=== PATIENT | female | born 1965 | race Caucasian/White ===

== ENCOUNTER 2018-08-02 22:15 | Inpatient (IN) | payer BC ==
[~2018-08-02] VITALS: Ht 162.6 cm; Wt 84.4 kg
[2018-08-02] MEDS ORDERED: ALBUTEROL SULF 2.5 MG/0.5ML(0.5%) NEB SOLN NEB ONE (23:00)
[2018-08-02] MEDS ORDERED: IPRATROPIUM BROM 0.5 MG/2.5ML INH SOL NEB ONE (23:00)
[2018-08-02] MEDS ORDERED: SODIUM CHLORIDE 0.9% 1,000 ML IV ONE (23:45)
[2018-08-02] MEDS ORDERED: methylPREDNISolone SOD SUCC 125 MG/2 ML VL IV ONE (23:45)
[2018-08-03] VITALS (7 sets, daily range): BP systolic 99–136; BP diastolic 56–86
[2018-08-03 00:38] LABS: Basophils # (auto) 0 uL; Basophils % (auto) 0.7 % (0.0-2.0); Eosinophils # (auto) 0.2 uL; Eosinophils % (auto) 2.4 % (0.0-7.0); Hematocrit 43.4 % (36.0-46.0); Hemoglobin 14.7 g/dL (12.2-16.2); Lymphocytes # (auto) 2.5 uL; Lymphocytes % (auto) 36.8 % (10.0-50.0); Mean Corpuscular Hemoglobin 31.2 pg (28.0-32.0); Mean Corpuscular Hgb Conc. 33.9 g/dL (32.0-36.0); Mean Corpuscular Volume 92.2 fL (80.0-100.0); Monocytes # (auto) 0.7 uL; Monocytes % (auto) 10.6 % (0.0-12.0); Neutrophils # (auto) 3.3 uL; Neutrophils % (auto) 49.5 % (37.0-80.0); Platelet Count (auto) 182 10^3/uL (140-450); Red Cell Distribution Width 14.1 % (11.8-14.3); White Blood Cell 6.8 10^3/uL (4.4-10.8)
[2018-08-03 00:54] LABS: Albumin 3.3 g/dL (3.4-5.0); Calcium 8.3 mg/dL (8.5-10.1); Potassium 4.3 mmol/L (3.5-5.1)
[2018-08-03 00:56] LABS: Bilirubin, Total 0.3 mg/dL (0.2-1.0)
[2018-08-03] MEDS ORDERED: ALBUTEROL SULF 2.5 MG/0.5ML(0.5%) NEB SOLN NEB ONE (04:30)
[2018-08-03] MEDS ORDERED: IPRATROPIUM BROM 0.5 MG/2.5ML INH SOL NEB ONE (04:30)
[2018-08-03] MEDS ORDERED: IOHEXOL 300 MG/ML 100ML BOTTLE IJ ONE (04:32)
[2018-08-03] MEDS ORDERED: LACTULOSE 20Gm/30ML SOLN PO PRN (08:45)
[2018-08-03] MEDS ORDERED: PROMETHAZINE HCL 25 MG/ML 1ML IV PRN (08:45)
[2018-08-03] MEDS ORDERED: ACETAMINOPHEN 500 MG TAB PO PRN (08:45)
[2018-08-03] MEDS ORDERED: MORPHINE SULF INJ 2 MG/ML SYRINGE 1ML IV PRN (08:45)
[2018-08-03] MEDS ORDERED: ALBUTEROL SULF 2.5 MG/0.5ML(0.5%) NEB SOLN NEB PRN (08:45)
[2018-08-03] MEDS ORDERED: TEMAZEPAM 15 MG CAP PO PRN (08:45)
[2018-08-03] MEDS ORDERED: traMADol HCL 50 MG TAB PO PRN (08:45)
[2018-08-03] MEDS ORDERED: NITROGLYCERIN 0.4 MG SL TAB SL PRN (08:45)
[2018-08-03 08:47] LABS: Urine Bacteria NONE SEEN /hpf (None Seen); Urine Blood 1+ /uL (Negative); Urine Budding Yeast OCCASIONAL /hpf (None Seen); Urine Mucus FEW (None Seen); Urine Specific Gravity 1.048 (1.001-1.035); Urine WBC <1 /hpf (0 - 5)
[2018-08-03] MEDS: DOXYCYCLINE 100MG/250ML 250 ML IV SCH ×2 (09:45→22:04)
[2018-08-03] MEDS: SODIUM CHLORIDE 0.9% 1,000 ML IV SCH ×2 (09:45→22:04)
--- NOTE | 2018-08-03 10:10 | NUR ---
Telemetry admit from [facility] admitted to Telemetry unit after SBAR received. Patient oriented to ELIAN HALE RN primary RN, unit, room, bed, and unit policies regarding patient care and visiting hours. Patient now on continuous telemetry monitoring, tele box #23 and telemetry reading on arrival to unit is SR 82. Patient weighed by bedscale and encouraged to call if they need something. All questions and concerns addressed, patient verbalized understanding.
[2018-08-03] MEDS: PANTOPRAZOLE 40 MG TAB PO SCH (10:34)
[2018-08-03] MEDS: ENOXAPARIN SOD 40 MG/0.4 ML SYRINGE SC SCH (10:35)
[2018-08-03] MEDS: ALBUTEROL SULF 2.5 MG/0.5ML(0.5%) NEB SOLN NEB SCH ×2 (11:00→18:58)
[2018-08-03] MEDS: IPRATROPIUM BROM 0.5 MG/2.5ML INH SOL NEB SCH ×2 (11:00→18:58)
[2018-08-03] MEDS ORDERED: methylPREDNISolone SOD SUCC 40 MG/ML VL IV SCH (12:00)
--- NOTE | 2018-08-03 19:30 | NUR ---
End of Shift Endorsed care to [facility] nurse Jocelyn. Patient shows no signs of distress at this time. Respiratory present at bedside performing breathing treatment.
--- NOTE | 2018-08-03 19:35 | NUR ---
Opening Shift Note Assumed care of patient, awake and alert, speaking on cell phone to son. No S/S of distress/SOB or pain. Bed in lowest locked position, side rails up x2, call light within reach. Instructed on POC and to call for assist PRN, will continue to monitor for changes Q1hr and PRN.
[2018-08-03] MEDS: methylPREDNISolone SOD SUCC 40 MG/ML VL IV SCH (22:03)
--- NOTE | 2018-08-04 00:15 | NUR ---
Respiratory note: PT REFUSING SCHEDULED MED NEB TX, STATES SHE IS NOT FEELING WELL, SHE FEEL NAUSEOUS AND TIRED. DENIES ANY CURRENT SOB, NO DISTRESS NOTED. HR 78 RR 18 SPO2 93% ON RA. PT AND RN AWARE TO HAVE RT PAGED IF NEEDED.
--- NOTE | 2018-08-04 00:30 | NUR ---
Nausea Patient reporting that she "does not feel well," and that her "stomach is upset". Patient offered nausea medication, refusing at this time. Patient aware to call RN if she changes her mind. No s/s of distress, will continue to monitor.
[2018-08-04 04:48] VITALS: BP 112/75
[2018-08-04] MEDS: ALBUTEROL SULF 2.5 MG/0.5ML(0.5%) NEB SOLN NEB SCH ×5 (06:31→23:05)
[2018-08-04] MEDS: IPRATROPIUM BROM 0.5 MG/2.5ML INH SOL NEB SCH ×5 (06:31→23:05)
--- NOTE | 2018-08-04 06:57 | NUR ---
Closing Note Patient lying in bed, awake and alert. No s/s of distress. Bed in lowest locked position, side rails up x2, call light within reach. Care endorsed to dayshift RN.
[2018-08-04] MEDS ORDERED: BIOT5TAB3 PO (07:47)
[2018-08-04] MEDS ORDERED: CITA10TA59 PO (07:47)
[2018-08-04 09:00] VITALS: BP 110/73
[2018-08-04] MEDS: DOXYCYCLINE 100MG/250ML 250 ML IV SCH ×2 (09:27→23:00)
[2018-08-04] MEDS: methylPREDNISolone SOD SUCC 40 MG/ML VL IV SCH ×2 (09:27→23:00)
[2018-08-04] MEDS: ENOXAPARIN SOD 40 MG/0.4 ML SYRINGE SC SCH (09:28)
[2018-08-04] MEDS: PANTOPRAZOLE 40 MG TAB PO SCH (09:28)
[2018-08-04] MEDS: SODIUM CHLORIDE 0.9% 1,000 ML IV SCH ×2 (09:28→13:07)
[2018-08-04 13:09] VITALS: BP 130/78
--- NOTE | 2018-08-04 13:15 | NUR ---
Spoke to Hospitalist MD Velasquez aware of patient's status including pt request to cont celexa. New orders received for cont Celexa. Will cont care
--- NOTE | 2018-08-04 15:00 | NUR ---
Urine sent as ordered
[2018-08-04 15:53] LABS: Alcohol, Urine < 3.0 mg/dL (0-5); Amphetamine Screen, Urine NEGATIVE (NEGATIVE); Barbiturate Scree,Urine NEGATIVE (NEGATIVE); Benzodiazephine Screen, Urine NEGATIVE (NEGATIVE); Cannabinoid Screen, Urine NEGATIVE (NEGATIVE); Cocaine Screen, Urine NEGATIVE (NEGATIVE); Opiate Scree,Urine NEGATIVE (NEGATIVE); Phencyclidine Screen, Urine NEGATIVE (NEGATIVE)
[2018-08-04 17:00] VITALS: BP 121/75
--- NOTE | 2018-08-04 19:15 | NUR ---
Opening Shift Note Assumed care of patient, awake and alert. No S/S of distress/SOB or pain. Bed in lowest locked position, side rails up x2, call light within reach. Instructed on POC and to call for assist PRN, will continue to monitor for changes Q1hr and PRN.
--- NOTE | 2018-08-04 21:30 | NUR ---
IV removal IV to left hand DC'd with clean sterile technique, catheter fully intact. Pressure dressing applied to site. Patient tolerated well. Will obtain IV access and continue care.
[2018-08-04 21:44] VITALS: BP 99/65
[2018-08-04] MEDS ORDERED: CITALOPRAM HYDROBR 20 MG TAB PO SCH (22:00)
--- NOTE | 2018-08-04 22:40 | NUR ---
IV insertion IV access obtained, via clean sterile technique by inserting 22 gauge catheter in the left hand after one attempt. IV secured properly. No trauma to site. Patient tolerated well. Will continue care.
[2018-08-05 05:36] VITALS: BP 125/82
[2018-08-05] MEDS: ALBUTEROL SULF 2.5 MG/0.5ML(0.5%) NEB SOLN NEB SCH ×3 (06:25→17:49)
[2018-08-05] MEDS: IPRATROPIUM BROM 0.5 MG/2.5ML INH SOL NEB SCH ×3 (06:25→17:49)
--- NOTE | 2018-08-05 06:49 | NUR ---
Closing Note Patient lying in bed, awake and alert. No s/s of distress. Bed in lowest locked position, side rails up x2, call light within reach. Will endorse care to dayshift RN.
[2018-08-05 07:05] LABS: Basophils # (auto) 0 uL; Basophils % (auto) 0.1 % (0.0-2.0); Eosinophils # (auto) 0 uL; Hematocrit 41.3 % (36.0-46.0); Hemoglobin 13.8 g/dL (12.2-16.2); Lymphocytes # (auto) 0.9 uL; Lymphocytes % (auto) 6.5 % (10.0-50.0); Mean Corpuscular Hgb Conc. 33.4 g/dL (32.0-36.0); Mean Corpuscular Volume 92.8 fL (80.0-100.0); Monocytes # (auto) 0.4 uL; Neutrophils # (auto) 12.7 uL; Neutrophils % (auto) 90.4 % (37.0-80.0); Nucleated Red Blood Cells % 0.1 %; Platelet Count (auto) 222 10^3/uL (140-450); Red Blood Cells 4.45 10^6/uL (4.0-5.20)
[2018-08-05 07:26] LABS: Calcium 8.7 mg/dL (8.5-10.1)
[2018-08-05 07:33] LABS: BUN/Creatinine Ratio 31.3; Magnesium 2.2 mg/dL (1.6-2.6)
[2018-08-05] MEDS: SODIUM CHLORIDE 0.9% 1,000 ML IV SCH (08:30)
[2018-08-05 09:00] VITALS: BP 123/78
[2018-08-05] MEDS: ENOXAPARIN SOD 40 MG/0.4 ML SYRINGE SC SCH (09:59)
[2018-08-05] MEDS: methylPREDNISolone SOD SUCC 40 MG/ML VL IV SCH (09:59)
[2018-08-05] MEDS: PANTOPRAZOLE 40 MG TAB PO SCH (09:59)
[2018-08-05] MEDS: DOXYCYCLINE 100MG/250ML 250 ML IV SCH (10:00)
--- NOTE | 2018-08-05 10:53 | NUR ---
Hospitalist at bedside MD Velasquez at bedside, aware of patient's status including pending resp culture result. Awaiting new orders
[2018-08-05] MEDS ORDERED: IPR002IS NEB ×2 (12:43→12:47)
[2018-08-05] MEDS ORDERED: ALBUAER3 IN (12:43)
[2018-08-05] MEDS ORDERED: ALB5IS NEB ×2 (12:43→12:46)
[2018-08-05] MEDS ORDERED: DOXY-216 PO (12:43)
[2018-08-05 13:00] VITALS: BP 140/91
--- NOTE | 2018-08-05 15:11 | NUR ---
Tele monitor returned to [facility] Per patient, she cannot go until after 6pm or 630pm. Awaiting transportation at this time. No s/s of acute distress or sob noted
--- NOTE | 2018-08-05 18:05 | NUR ---
Discharge instructions given as ordered. Encourage to follow up with PMD as instructed. All questions and concerns addressed. Patient verbalized understanding. Medication reconciliation form completed and copy given to patient. IV removed with catheter intact, pressure dressing applied. Patient ambulated to vehicle with all personal belongings, accompanied by family members. No distress noted at time of departure.
--- NOTE | 2018-08-06 14:54 | NUR ---
NEBULIZER MACHINE CALLED INTO PHARMACY PER DR. EDDY, MICHELLE TO CALL IN PRESCRIPTION FOR NEBULIZER MACHINE. PER [facility] WILL FILL FOR PATIENT, MICHELLE TO CALL INTO [facility] IN [place] [phone]. CALLED [facility], SPOKE WITH SEEMA.
== END 2018-08-05 19:00 | disposition home or self-care (01) | DRG 203 ==
LOC: ER 22:24 → TELE 08-03 08:33 → TELE-EAST 08-03 10:14
PROVIDERS: ADMIT Internal Medicine; ATTEND Internal Medicine
DX: J45.902 Unspecified asthma with status asthmaticus (principal); E66.9 Obesity, unspecified; Z68.31 Body mass index [BMI] 31.0-31.9, adult; R09.02 Hypoxemia; F32.9 Major depressive disorder, single episode, unspecified; F41.9 Anxiety disorder, unspecified; B34.9 Viral infection, unspecified; M41.9 Scoliosis, unspecified; T38.0X5A Adverse effect of glucocorticoids and synthetic analogues, initial encounter; Y92.89 Other specified places as the place of occurrence of the external cause; Z82.2 Family history of deafness and hearing loss; Z83.3 Family history of diabetes mellitus
CPT/HCPCS: 36415; 71046; 71260; 80048; 80053; 80061; 80307; 81001; 83735; 85025; 85379; 87070; 87205; 87804; 94640; G0378; J3490